=== PATIENT | female | born 1955 | race African-American/Black ===

== ENCOUNTER 2021-06-17 18:44 | Emergency (ER) | payer SELFPAY ==
[2021-06-17 19:11] VITALS: TEMP 98.5; BMI 30.2
[2021-06-17] MEDS ORDERED: ENALAPRIL MALEATE 5 MG TABLET PO ONE (19:52)
[2021-06-17] MEDS ORDERED: FAMOTIDINE 20 MG/50 ML IVPB 20 MG/50 ML MG IVPB ONE ×2 (19:55→20:54)
[2021-06-17] MEDS ORDERED: ACETAMINOPHEN 1000 MG/100 ML VIAL (NON FORMULARY) IVPB ONE (19:56)
[2021-06-17] MEDS ORDERED: MAG HYDROX/AL HYDROX/SIMETH 30 ML UNIT-DOSE CUP PO ONE (19:56)
[2021-06-17] MEDS ORDERED: ACETAMINOPHEN INJECTION 100 ML IVPB ONE (20:53)
[2021-06-17] MEDS ORDERED: ENALAPRIL MALEATE 5 MG TABLET ONE (20:53)
[2021-06-17] MEDS ORDERED: MAG HYDROX/AL HYDROX/SIMETH 30 ML UNIT-DOSE CUP ONE (20:54)
[2021-06-17 21:17] VITALS: BP 169/87; PULSE 84
[2021-06-17] MEDS ORDERED: POLYETHYLENE GLYCOL (HEALTHYLAX) 3350 17 GM PACKET PO ONE (21:28)
[2021-06-17 21:57] LABS: HEMATOCRIT 35.2 % (32.4-45.2); HEMOGLOBIN 11.9 GM/dL (10.7-15.3); MCH 31.5 pg (25.7-33.7); MCHC 33.6 g/dl (32.0-36.0); MEAN CELL VOLUME 93.7 fl (80-96); MEAN PLT VOLUME 8.2 fl (7.5-11.1); PLATELET COUNT 339 10^3/uL (134-434); RBC 3.76 M/mm3 (3.60-5.2); RDW 13.7 % (11.6-15.6); WHITE BLOOD COUNT 7.5 K/mm3 (4.0-10.0)
[2021-06-17] MEDS ORDERED: POLYETHYLENE GLYCOL (HEALTHYLAX) 3350 17 GM PACKET ONE (22:10)
[2021-06-17 22:23] LABS: CHLORIDE 107 mmol/L (98-107); SODIUM 140 mmol/L (136-145)
[2021-06-17 22:25] LABS: ALBUMIN 3.6 g/dl (3.4-5.0); ANION GAP 8 MMOL/L (8-16); BLOOD UREA NITROGEN 20.8 mg/dL (7-18); CALCIUM 8.8 mg/dL (8.5-10.1); CO2 25 mmol/L (21-32); LIPASE 196 U/L (73-393)
[2021-06-17 22:26] LABS: GLUCOSE,RANDOM 88 mg/dL (74-106)
[2021-06-17 22:28] LABS: CREATININE 0.8 mg/dL (0.55-1.3); SGOT/AST 18 U/L (15-37); SGPT/ALT 33 U/L (13-61)
[2021-06-17 22:30] LABS: TOT PROT 7.6 g/dl (6.4-8.2)
[2021-06-17 22:31] LABS: ALK PHOS 104 U/L (45-117)
[2021-06-17 22:44] LABS: BILIRUBIN,TOTAL 1.1 mg/dL (0.2-1)
== END 2021-06-17 23:46 | disposition home or self-care (01) ==
LOC: JER 18:44
PROC: 3E0333Z Introduction of Anti-inflammatory into Peripheral Vein, Percutaneous Approach (ICD-10-PCS; principal; 2021-06-17)
PROC: 3E033GC Introduction of Other Therapeutic Substance into Peripheral Vein, Percutaneous Approach (ICD-10-PCS; 2021-06-17)
DX: R07.1 Chest pain on breathing (principal); I10 Essential (primary) hypertension
CPT/HCPCS: 36415; 71045-TC-FY; 80053; 82550; 82553; 83690; 84484; 85027; 93005; 93010; 99285-25; C9803; J0131; U0003; U0005